=== PATIENT | male | born 1950 | race Caucasian/White ===

== ENCOUNTER → 2019-09-11 11:20 | Outpatient (CLI) | payer OTHER, SELFPAY ==
--- NOTE | 2019-09-11 | DI.MRI.S_ITS ---
PROCEDURE: MR KNEE LT WO CON INDICATIONS: Pain in left knee TECHNIQUE: Noncontrast sagittal PD fast spin echo and T2 fast spin echo with fat saturation, sagittal 3-D FLASH with fat saturation; coronal T1 spin echo and PD fast spin echo with fat saturation, and axial PD fast spin echo with fat saturation through the knee. COMPARISON: [facility] [place], CR, XR BONE LENGTH SCANOGRAM, 09/11/2019, 12:33. [facility] [place], CR, XR KNEE ARTHRITIC SERIES BI, 08/17/2019, 13:37. FINDINGS: Image quality: Excellent. Menisci: Medial meniscal extrusion. There is horizontal tear involving the body and posterior horn of the medial meniscus. The lateral meniscus demonstrates normal morphology and internal signal. The meniscal root ligaments appear intact. Cruciate ligaments: The anterior cruciate ligament appears thickened and demonstrates heterogeneous signal, consistent with old tear/scarring. The posterior cruciate ligament is intact. Medial structures: The medial collateral ligament appears intact. The semimembranosus tendon insertions and meniscocapsular junction appear intact. Visualized portions of the pes anserinus tendons appear normal. No abnormal bursal fluid. There is a venous varicosity in the medial aspect of the knee. Lateral structures: The lateral collateral ligament and the biceps femoris tendon appear intact. The popliteus tendon appears normal. Iliotibial band appears normal. Anterior structures: The quadriceps and patellar tendons appear intact. There is increased signal at the proximal patellar tendon insertion consistent with tendinitis. Patellar alignment is normal. No femoral trochlear dysplasia or ventral trochlear prominence. No edema in the infrapatellar fat pad. Bones and cartilage: No bone marrow contusions or fractures. There is tricompartmental cartilage thinning most severe in the medial and lateral femorotibial compartment with denudation of articular cartilage along the weightbearing portion of the articular surface. Subchondral edema in the medial femoral condyle and medial tibial plateau is likely secondary to bone on bone. Joint space: There is moderate knee joint fluid. There is a small Miller's cyst. A small synovial cyst is seen at the proximal tibiofibular joint. Normal appearing synovial plicae are incidentally noted. IMPRESSION: 1. Medial meniscal extrusion and horizontal tear of the body and posterior horn of the medial meniscus. 2. Suspect old ACL injury with scarring. 3. Severe degenerative joint disease with denudation of articular cartilage in the medial femorotibial compartment. 4. Moderate knee joint effusion. 5. A small Miller's cyst and a small synovial cyst adjacent to the proximal tibiofibular joint. Dictated by: Tuan Villegas M.D. on 09/11/2019 at 12:19 Approved by: Tuan Villegas M.D. on 09/11/2019 at 18:11
== END ==
PROVIDERS: PCP Family Medicine; Visit Provider Orthopaedic Surgery
DX: M25.562 Pain in left knee (principal); S83.242A Other tear of medial meniscus, current injury, left knee, initial encounter; M17.12 Unilateral primary osteoarthritis, left knee; M25.462 Effusion, left knee; M71.22 Synovial cyst of popliteal space [Baker], left knee
CPT/HCPCS: 73721

== ENCOUNTER 2019-10-30 11:42 | Inpatient (IN) | payer OTHER, SELFPAY ==
[2019-10-13 13:54] VITALS: BMI 29.8
[2019-10-30] VITALS (15 sets, daily range): BP systolic 103–167; BP diastolic 64–94; PULSE 73–98; RESP 10–20; TEMP 36.1–36.5; O2SAT 94–100; BMI 29.8
--- NOTE | 2019-10-30 06:00 | DI.RAD.S_ITS ---
PROCEDURE: XR KNEE LT 1TO2V INDICATIONS: TKA. TECHNIQUE: 2 view(s) of the knee acquired. COMPARISON: [facility], RIAN, KNEE 1-2 VIEWS RIGHT, 04/03/2016, 13:39. [facility], CR, XR KNEE ARTHRITIC SERIES BI, 08/17/2019, 13:37. FINDINGS: Bones: Patient is status post knee joint arthroplasty. Hardware components are in expected positions. Visualized bony structures are intact. Soft tissues: Overlying postoperative changes are noted. IMPRESSION: Expected alignment status post placement of total left knee arthroplasty. Dictated by: Georges WINCHESTER Interpreted: Porter Reed MD on 10/30/2019 at 16:46 Approved by: Portre Reed M.D. on 10/30/2019 at 16:53
[2019-10-30] MEDS: ACETAMINOPHEN 325 MG TABLET 975 MG PO ×2 (12:21→21:09)
[2019-10-30] MEDS: PREGABALIN 75 MG CAPSULE PO (12:22)
[2019-10-30] MEDS: LACTATED RINGERS 1,000 ML 42 ML IV ×2 (12:23→14:48)
[2019-10-30] MEDS: CELECOXIB 200 MG CAPSULE PO (12:23)
[2019-10-30] MEDS: VANCOMYCIN 1,000 MG/200 ML PIGGYBACK 200 MG IV (12:29)
--- NOTE | 2019-10-30 13:02 | PM.PREOP ---
Pre-operative Note Interval Note History & Physical reviewed/Exam performed by Physician: Yes Changes to H&P: No
[2019-10-30] MEDS: MIDAZOLAM 2 MG/2 ML VIAL IV (13:12)
[2019-10-30] MEDS: fentaNYL 100 MCG/2 ML INJ 50 MCG IV ×2 (13:12→13:14)
[2019-10-30] MEDS: CEFAZOLIN 2 GM/100 ML FROZ.PIGGY IV ×2 (13:32→21:56)
--- NOTE | 2019-10-30 13:32 | SUR.PREOP ---
Block start time [1310] . Monitoring initiated and maintained throughout procedure. Oxygen and medications given per anesthesiologist instructions. Patient remained stable throughout procedure, no adverse reactions noted. Block end time [1330].
[2019-10-30] MEDS: TRANEXAMIC ACID 1,000 MG VIAL 2000 MG INJ ×2 (13:48→15:49)
--- NOTE | 2019-10-30 14:09 | SUR.OPER ---
Supine on padded OR bed. Pillow under head, arms secured on padded armboards <90 degree abduction. Safety belt across torso. Non-operative leg secured with tape over blanket over lower leg. Operative leg secured in DeMayo positioner. Foam padded brace at thigh of operative leg.
[2019-10-30] MEDS: BUPIVACAINE 0.25% W/ EPI 30 ML VIAL 60 ML INJ (14:30)
[2019-10-30] MEDS: BUPIVACAINE LIPOSOME 266 MG/20 ML VIAL INJ (14:46)
--- NOTE | 2019-10-30 16:12 | PM.OP.1 ---
Operative Date/Time/Diagnoses Date of procedure: 10/30/19 Time of procedure: 14:12 Pre-op diagnosis: left knee OA Post-op diagnosis: same Procedure & Clinicians Procedure: Left total knee arthroplasty Same procedure as scheduled: Yes Indications: The patient has had progressively worsening left knee pain with radiographic changes consistent with arthritis. Non-operative management has failed and the patient has requested total knee replacement. The risks, benefits and alternatives to surgery were discussed with the patient prior to proceeding. Risks discussed included, but were not limited to, failure to relieve pain, stiffness, infection, nerve damage, deep venous thrombosis, pulmonary embolism, stroke, coma, heart attack, permanent paralysis and , as well as the potential need for eventual revision of the prosthetic. Surgeon: Sandra Cardona Metal Machinist: Zoey Rodrigues Anesthesia Type: Spinal, Sedation and Peripheral nerve block Operative Notes Findings: Severe left knee osteoarthritis, chondrocalcinosis with significant capsular tightness. Good stability and range of motion Closure Type: primary Specimen(s): none sent Prosthetic devices, grafts, tissues, transplants, or devices: Cardona [employer] Nephew Journey BCS 2 size 7 femoral component, size 7 tibia, 38 mm round patella, 9 mm poly Applied: drain(s) Estimated Blood Loss (mL): 250 Blood products transfused: none Tourniquet time (min): 111 Procedure in detail: The patient was seen in the pre-operative area, where the patient identified the left knee as the operative site and this was marked with my initials. The patient received pre-operative antibiotics, and was taken to the operating room and placed on the operative table in the supine position. After satisfactory anesthesia, a multimedia producer out was performed. The left leg was encircled with a tourniquet about the proximal thigh, and the leg was prepared from the toes to the tourniquet with ChloroPrep in the usual fashion and draped through sterile drapes. The leg was elevated and exsanguinated with Eschmark bandage and the tourniquet inflated to [250] mmHg pressure. The knee was approached through an approximately 18 cm incision centered over the patella and carried into the knee through a medial parapatellar arthrotomy. A portion of the medial and lateral meniscus was resected. Soft tissue was carefully mobilized around the patella the patella was measured with a caliper. Bone was resected from the patella and the patellar height was reconstituted with up an appropriate sized patellar component. A cover was then placed on the patella. The patella had a somewhat oval appearance and initially prepped for an oval patella but the tracking was better with a round patella and a 38 round patella was selected. A small amount of additional medial and lateral meniscus was resected. The visionare guide fit well to the distal femur. It looked like an appropriate distal femoral cut and the cut was made without difficulty. The rotation was assessed and the appropriate size femoral guide was placed on the distal femur and finishing cuts were made. There was no evidence of notching. The anterior, posterior and chamfer cuts were then made. The posterior osteophytes and soft tissues were then removed. The posterior capsule was injected with part of a mixture of 60 ml 0.25% Marcaine mixed with 20 ml Exparel for post operative pain control. The remainder of this mixture was injected into the capsule and subcutaneous tissues during cement curing. The tibia was prepared and the visionaire guide fit well to the distal tibia. The rotation was assessed. The patient was placed in extension residual medial and lateral meniscus as well as any residual bone was carefully resected. [No] additional tibia was resected. Hemostasis was achieved especially posteriorly. Additional local was injected into the posterior capsule. The extension gap was assessed and additional releases for gap balancing were performed as necessary. It was checked with the gap strategic planning specialist. The femoral component was trial was placed and the notch was finished. Trial tibial and femoral components were then placed and the knee placed through a range of motion. Range of motion was [0-130], with good stability throughout the range. The trials were then removed, and the tibia was finished. The bone was prepared with pulsatile lavage, and dried with a sponge. Cement was applied and the final prosthetics placed. Excess cement was removed during and after cement curing. A brief Betadine soak was performed. After confirming there was no extruded cement posteriorly, the final tibial insert was placed. The knee was copiously irrigated and the tourniquet deflated. Hemostasis was obtained with the Bovie cautery. A drain was placed and brought out superolaterally. The capsule was closed with interrupted Vicryl suture. The subcutaneous layer was closed with barbed sutures, and the skin with a running 3-0 V-Lock suture and Surgical glue. An Aquacel Ag dressing was applied and the patient was taken to recovery having tolerated the procedure well. Complications: none Post-operative Condition: stable Disposition: Acute Care Plan for aftercare: The patient will be maintained on a standard total knee replacement protocol with weight bearing as tolerated. The patient will receive aspirin and sequential compression devices for DVT prophylaxis. The patient will be discharged home when safe for the home environment.
--- NOTE | 2019-10-30 16:42 | SUR.PHASEI ---
Patient arouses to voice. SOUTH's x 4. Denies pain and nausea.
[2019-10-30] MEDS: LACTATED RINGERS 1,000 ML 125 ML IV (18:27)
--- NOTE | 2019-10-30 19:46 | PC.NURSE ---
Addendum entered by Jackson Fritz R.N. 10/30/19 22:29: At 2230 hemovac output noted to be 325cc after being unclamped at 1800. Dr. Cardona called, orders received to clamp hemovac for two hours. Orders followed, hemovac to be unclamped at 0030. To be passed along in report. Care continues. Original Note: Acute Care Admission Patient arrives to acute care floor alert and oriented. Denies pain, N/C, any new or unusual numbness or tingling. Surgical dressing CDI, CMS intact to left lower extremity. Bilateral SCDs, INSPECTOR PENETRANT in place and on. VSS, IV fluids administered per orders. Hemovac clamped upon arrival to floor, unclamped at 1800. Patient has IS at home, states that family will be able to bring in. Cough and deep breathing encouraged, with patient giving return demonstration. Care is ongoing.
[2019-10-30] MEDS: MIRTAZAPINE 15 MG TABLET 7.5 MG PO (21:10)
[2019-10-30] MEDS: OXYCODONE IR 5 MG TABLET PO (21:10)
[2019-10-30] MEDS: ASPIRIN EC 81 MG TABLET PO (21:10)
[2019-10-30] MEDS: DOCUSATE 100 MG CAPSULE PO (21:11)
[2019-10-30] MEDS: IBUPROFEN 400 MG TABLET PO (21:11)
[2019-10-30] MEDS: PRAZOSIN 1 MG CAPSULE PO (21:12)
[2019-10-30] MEDS: NORTRIPTYLINE 10 MG CAPSULE PO (21:14)
[2019-10-30] MEDS: DULOXETINE 30 MG CAPSULE 90 MG PO (21:14)
[2019-10-30] MEDS: dilTIAZem CD 180 MG CAP PO (21:14)
[2019-10-31] MEDS: IBUPROFEN 400 MG TABLET PO ×4 (00:18→11:57)
[2019-10-31] MEDS: OXYCODONE IR 5 MG TABLET PO ×4 (01:57→11:58)
[2019-10-31] MEDS: CEFAZOLIN 2 GM/100 ML FROZ.PIGGY IV (04:36)
[2019-10-31 05:47] VITALS: BP 115/67; PULSE 85; RESP 16; TEMP 36.6; O2SAT 97
[2019-10-31 06:25] LABS: Hematocrit 38.6 % (41-53); Hemoglobin 13.3 g/dL (13.5-17.5)
[2019-10-31 08:28] VITALS: BP 110/67; PULSE 118; RESP 16; TEMP 36.1; O2SAT 97
[2019-10-31] MEDS: ASPIRIN EC 81 MG TABLET PO (08:40)
[2019-10-31] MEDS: DOCUSATE 100 MG CAPSULE PO (08:40)
[2019-10-31] MEDS: ACETAMINOPHEN 325 MG TABLET 975 MG PO (08:43)
--- NOTE | 2019-10-31 11:12 | P.DS_ITS ---
History of Present Illness History of Present Illness Date Patient Seen: 10/31/19 Time Patient Seen: 11:12 Chief complaint: [id number] LEFT TKA Narrative: See dictated history and physical for preoperative history and physical. Patient taken to the operating room he underwent a left total knee arthroplasty. He tolerated the procedure well. He had some moderate pos toperative drainage which resolved. He was evaluated by Physical therapy and was ambulating well in the qureshi without difficulty. He was felt to be stable to discharge for home. Discharge Providers Provider Date of admission: 10/30/19 11:42 Discharge Date: 10/31/19 Primary care physician: Brandon Barfield MD Consults: 10/29/19 06:00 Consult to Anesthesiology Routine Comment: Consulting Provider: Anesthesiologist Reason for consultation: Regional block for post operative pain control 10/30/19 18:05 Consult to Discharge Planning Routine Comment: Consult to Physical Therapy Evaluate & Treat Comment: Physician Instructions: postop TKA protocol Consult to Respiratory Therapy Evaluate & Treat Comment: Physician Instructions: Evaluate and treat Discharge provider: Sandra Cardona MD Summary Hospital Course Discharge Diagnosis: Left knee osteoarthritis Hospital Course: He tolerated total knee arthroplasty without difficulty. His legs were benign his dressing was dry and he had a good straight leg raise prior to discharge. Was evaluated by Physical therapy and was noted to be independent for discharge. Status at Discharge Cognitive/behavioral status at discharge: oriented Functional status at discharge: independent ambulation Overall status at discharge: patient is back to baseline Time Spent with Patient Time spent: Less than 30 minutes Exam Vital Signs (past 8 hours): - 10/31/19 05:47 10/31/19 08:28 Temperature 97.9 F 97.0 F L Pulse Rate 85 118 H Respiratory Rate 16 16 Blood Pressure 115/67 110/67 Pulse Oximetry 97 97 Oxygen Delivery Method Room Air Oxygen Flow Rate 0 Objective Labs Result Diagrams: 10/31/19 05:45 Labs: Laboratory Results - last 24 hr 10/31/19 05:45 Hgb 13.3 L Hct 38.6 L Discharge Plan Discharge Plan Patient Disposition: Home Discharge orders & Medications Prescriptions: Continued diltiazem HCl 180 mg Capsule,Extended Release 24 Hr 180 mg PO BEDTIME RF: 0 prazosin 1 mg Capsule 1 mg PO BEDTIME RF: 0 aspirin [Aspir-81] 81 mg Tablet,Delayed Release (Dr/Ec) 81 mg PO BEDTIME RF: 0 nortriptyline 10 mg Capsule 10 mg PO BEDTIME RF: 0 duloxetine 30 mg Capsule,Delayed Release(Dr/Ec) 90 mg PO BEDTIME RF: 0 mirtazapine 15 mg Tablet 7.5 mg PO BEDTIME RF: 0 Follow up/Referrals: Brandon Barfield MD [Primary Care Provider] - Diet/Activity/Treatments Diet: Diet as Tolerated Activity: walk as tolerated Cold/Heat Therapy: ice knee multiple times a day Skin/Wound/Dressing Care Report to your healthcare provider any signs of infection, such as:: chills, fever, night sweats, increased pain, unusual drainage and unusual redness Dressing: keep dressing on, ok to shower Visit Report/Discharge Packet Instructions: DI for Knee Replacement Discharge Data Primary Care Provider: Brandon Barfield Quality VTE Deep Vein Thrombosis/Pulmonary Embolism Present on Admission: No
--- NOTE | 2019-10-31 12:52 | PC.NURSE ---
Day shift: Pt left unit at approx 1250 in WC with JALEN Bryson to private car driven by Pt's spouse. Paperwork signed and all questions answered. Pt is SwiYonas. Already has MD zavala. Pt has all personal belongings. Sonadebbie is CDI. Pt has new ice packs for ride home. They live in [place]. They have about a [address] Medicated for pain for that drive.
--- NOTE | 2019-10-31 13:24 | PT.IIE ---
Current Diagnoses Unilateral primary osteoarthritis, left knee (10/30/19) Surgery Performed Operation Date: 10/30/19 13:45 Actual Procedures p Total Knee Arthroplasty(Left) - Sandra Cardona MD Surgical History (Last Updated 10/20/19 @ 13:12 by April Liriano, RN) History of arthroplasty of right knee (Acute 04/03/16) History of arthroscopy of both knees (Acute) Hx of bilateral cataract extraction (Acute ~2018) Hx of laminectomy (Acute) Hx of left inguinal hernia repair (Acute ~2018) Hx of repair of left rotator cuff (Acute) Medical History (Last Updated 10/13/19 @ 14:01 by April Liriano, RN) Former smoker (Acute) GERD (gastroesophageal reflux disease) (Acute) Hearing impaired (Acute) Physical Therapy Inpatient Evaluation/Re-Eval M1 PT/OT-IP Prior Functional Status Start: 10/31/19 13:11 Freq: Status: Discharge Protocol: Document 10/31/19 09:45 MB (Rec: 10/31/19 13:24 MB [id number]) Medical Review Prior Functional Status Medical History Reviewed Yes Communication WNLs Mobility and Gait I Activities of Daily Living and IADL's I Prior Functional Level (Other details) I Social History Household Members spouse,friend(s) Living Arrangements House Number of Stairs To Enter/Railing? 1 step to enter, will use RW to ascend step that has platform at top Home Environment Standard Height Toilet Home Equipment Front Wheel Walker Employment Status Retired M2 PT-IP Current Condition Start: 10/31/19 13:11 Freq: Status: Discharge Protocol: Document 10/31/19 09:45 MB (Rec: 10/31/19 13:24 MB [id number]) Physical Therapy Current Condition Current Condition Evaluation Date 10/31/19 Treatment Diagnosis S/p L TKA, ambulate as tolerated Weight Bearing Status Weight Bearing Status Weight Bear as Tolerated M3 PT-IP Subjective Start: 10/31/19 13:11 Freq: Status: Discharge Protocol: Document 10/31/19 09:45 MB (Rec: 10/31/19 13:24 MB [id number]) Subjective Physical Therapy Visit Type Type Initial Evaluation Visit Start Time 09:45 Visit Stop Time 10:18 Total Visit Minutes 33 Notes Pt to d/c, gait trained to step, ed and training in ascending and descending step, taught QS, HS, AP. HS in supine and sitting Physical Therapy Visit Comments Patient Comments Pt reports 4/10 pain in left knee at rest. He is ready to go home. Patient Goals To go home with today and go to OPPT when ready Therapy Pain Assessment Pain When Pain Assessed During Mobility Pain Present Pain Present Pain Reported Location Knee Intensity 5 Scale Used Numeric (1 - 10) M4 PT-IP Mobility and Gait Start: 10/31/19 13:11 Freq: Status: Discharge Protocol: Document 10/31/19 09:45 MB (Rec: 10/31/19 13:24 MB [id number]) PT-Bed Mobility Assessment Supine to Sit Supine to Sit Minimal Assistance Scooting Scooting to Edge of Bed Minimal Assistance PT-Transfer Assessment Sit to and From Stand Sit to and from Stand Independent Equipment Transfer Assistive Device Front Wheeled Walker Transfers Transfer Destination Chair Transfer Ability Level of Assist Independent Comments Mobility Comments PT assists pt to guard left knee when getting OOB the first time. He is SBA with use of RW to gait, cues for staying in the walker and to try to progress to step- through gait. Gait Assessment Gait Gait Assistance Required: Standby Assistance Distance (Feet) 100 Assistive Devices Assistive Device Gait Belt,Front Wheeled Walker Gait Deviations General Gait Pattern Antalgic,Decreased Stride Length,Decreased Feet Clearance,Step-to Gait Comments Gait Comments 100'x2 for gait training in hallway to step and back to room. Step-to gait with decreased step-length and foot clearance, decreased knee bend. Pt requires cues to stay inside the walker. Stair Climbing Assessment Evaluation Level of Assist On Stairs Contact Guard Assistance Devices Stair Climbing Assistive Devices Front Wheel Walker Technique/Endurance Stair Climbing Direction Descend Number of Steps Climbed 1 Query Text: Comments Stair Climbing Comments Cues to step as close to step as possible and then to step up or down with ascend and descend. Ed pt to have hold walker for safety. PT-Balance Assessment Sitting Balance and Reactions Static Sitting Balance Ability Good Dynamic Sitting Balance Ability Good Standing Balance and Reactions Static Standing Balance Ability Good Dynamic Standing Balance Ability Good Device Used RW M5 PT-IP Objective Assessments Start: 10/31/19 13:11 Freq: Status: Discharge Protocol: Document 10/31/19 09:45 MB (Rec: 10/31/19 13:24 MB [id number]) Orientation Orientation/Cognition Level of Alertness Alert Orientation Name,Age,Birthday,Month,Date, Year,Day of Week,Place, Situation Safety Awareness Understands Safety Issues Memory Description No Deficits Noted Gross Range of Motion Upper Extremity ROM Assessment Within Functional Limits Lower Extremity ROM Assessment Left Impaired Impairments LLE AROM knee in sitting with flexion to 85 deg Strength Upper Extremity Strength Assessment Within Functional Limits Lower Extremity Strength Assessment Bilaterally Impaired Comments Strength Comments Pt is able to perform mini left SLR with mild knee extensor lag this date. MMT R hip in supine with hip flexion 3/5 and hip abduction 3/5. Left hip and knee MMT deferred Sensation Assessment Comments Sensation Comments Light touch LEs grossly intact to light touch, unable to assess around wound Other Assessments Other Other Assessments Pt is a 69 y/o male presenting with decreased LLE ROM, strength, balance and gait post-op L TKR 10/30/19. He presents well enough functionally to d/c home with his and return to OPPT when cleared by surgeon. No further acute PT needs. Pt understands safe transfers, gait and HEP.
== END 2019-10-31 12:54 | disposition home or self-care (01) | DRG 470 ==
PROVIDERS: Admitting Provider Orthopaedic Surgery; PCP Family Medicine; Visit Provider Orthopaedic Surgery
PROC: 0SRD0JZ Replacement of Left Knee Joint with Synthetic Substitute, Open Approach (ICD-10-PCS; CPT 27447; principal; 2019-10-30 13:45)
DX: M17.12 Unilateral primary osteoarthritis, left knee (principal); Z96.651 Presence of right artificial knee joint; R01.1 Cardiac murmur, unspecified; F32.9 Major depressive disorder, single episode, unspecified; I48.91 Unspecified atrial fibrillation; M11.262 Other chondrocalcinosis, left knee
CPT/HCPCS: 36415; 64447; 73560; 85014; 85018; 97116; 97161; C1776; C9290; J0690; J2250; J2405; J2704; J3010